=== PATIENT | female | born 1950 | race Caucasian/White ===

== ENCOUNTER 2017-02-03 12:49 | Day surgery (SDC) | payer MEDICARE ==
[~2017-02-03 12:49] MED LIST: BENZ100C PO; CALC-128 PO; CARV25TA2 PO; CHOL2000 PO; ERGO500012 PO; FURO20TA3 PO; HYDROmorphone 2 MG/ML VIAL IV PRN; IV RINGERS,LACTATED 1000ML 1,000 ML IV SCH; LIDOCAINE 1% 1 ML SYRINGE. ID PRN; LISI-334 PO; MAGN400C PO; MORPHINE SULFATE 2 MG/ML DISP.SYRIN. IV PRN; ONDANSETRON PF 4 MG/2 ML VIAL. IV PRN; POTA20TA12 PO; PROCHLORPERAZINE 10 MG/2 ML VIAL. IV PRN; SILV20CR4 TP; TRIA15OI TP; WARF2TAB7 PO; fentaNYL PF VIAL 100 MCG/2 ML VIAL IV PRN
[2017-02-03 14:14] LABS: BASO % 1 % (0-3); EOS % 2 % (0-3); HEMOGLOBIN 15.4 g/dL (12.0-15.5); LYMPH # 1.8 x10^3/uL (1.0-4.8); LYMPH % 25 % (24-48); MEAN CORPUSCULAR HEMOGLOBIN 30 pg (25-35); MEAN CORPUSCULAR HGB CONC 34 g/dL (31-37); MEAN CORPUSCULAR VOLUME 88 fL (79-100); MONO % 7 % (0-9); NEUT % 65 % (31-73); PLATELET COUNT 152 x10^3/uL (140-400); RED BLOOD COUNT 5.23 x10^6/uL (3.50-5.40); RED CELL DISTRIBUTION WIDTH 15.1 % (11.5-14.5); WHITE BLOOD COUNT 7.2 x10^3/uL (4.0-11.0)
[2017-02-03 14:24] LABS: INR 1.6 (0.8-1.1); PROTHROMBIN TIME PATIENT 18.2 SEC (11.7-14.0)
[2017-02-03 14:27] LABS: CALCIUM 10.2 mg/dL (8.5-10.1); CREATININE 1.1 mg/dL (0.6-1.0); GFR 49.7
--- NOTE | 2017-02-03 14:59 | HP ---
ADMIT DATE: 02/03/2017 CHIEF COMPLAINT: Preoperative evaluation for plantar fasciitis. 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 She has now been scheduled for surgery this afternoon. We have been requested to do a preoperative H and P. PAST MEDICAL HISTORY: Atrial fibrillation, chronic anticoagulation, permanent pacemaker, plantar fasciitis, previous plantar fasciitis surgery, and hypertension. ALLERGIES: None. FAMILY HISTORY: Hypertension. SOCIAL HISTORY: She is . She does not drink, smoke, or take drugs. MEDICATIONS: Reviewed. REVIEW OF SYSTEMS: GENERAL: No history of weight change, weakness, or fevers. SKIN: No bruising, hair changes, or rashes. EYES: No blurred, double, or loss of vision. NOSE AND THROAT: No history of nosebleeds, hoarseness, or sore throat. HEART: No history of palpitations, chest pain, or shortness of breath on exertion. LUNGS: Denies cough, hemoptysis, wheezing, or shortness of breath. GASTROINTESTINAL: Denies changes in appetite, nausea, vomiting, diarrhea, or constipation. GENITOURINARY: No history of frequency, urgency, hesitancy, or nocturia. NEUROLOGIC: Denies history of numbness, tingling, tremor, or weakness. PSYCHIATRIC: No history of panic, anxiety, or depression. ENDOCRINE: No history of heat or cold intolerance, polyuria, or polydipsia. EXTREMITIES: She complains of foot pain. PHYSICAL EXAMINATION: VITAL SIGNS: Temperature afebrile, pulse 92, respirations 18, and blood pressure 144/91. GENERAL: She is alert, cooperative. HEART: Normal S1, S2. It is irregular. LUNGS: Clear. ABDOMEN: Soft, decreased bowel sounds. EXTREMITIES: Left foot has plantar fasciitis. There was also a little nodule right below the fourth toe. It is ecchymotic, about 0.5 cm across. LABORATORY DATA: Her INR is 1.5. ASSESSMENT AND PLAN: Plantar fasciitis with a lesion on the plantar surface of the left foot in an elderly female with the above-noted comorbidities. Clinically, she seems very stable for surgery. She expects she will do well. Her INR is low enough. We can go for surgery at 1.5. Postoperatively, she has got wound care, p.r.n. pain medications, resume her home medicines. Thank you very much for allowing us to participate in the care of this nice lady. MARQUIS DE DO DR: BARBARA/tyler JOB#: [id number] / [id number]
[2017-02-03] MEDS ORDERED: PROPOFOL 20 ML IV ONE ×3 (15:10→15:48)
[2017-02-03] MEDS ORDERED: LIDOCAINE 2% PF Vial for OR 5 ML VIAL. ONE (15:10)
[2017-02-03] MEDS ORDERED: LIDOCAINE 1%/EPI 1:100,000 20 ML VIAL. ONE (15:30)
[2017-02-03] MEDS ORDERED: PHENYLEPHRINE in 0.9% NACL PF 1 MG/10 ML DISP.SYRIN. IV ONE (15:40)
--- NOTE | 2017-02-03 16:18 | PDOC4 ---
Operative Note Operative Note Surgeon: Jp Preoperative DX: Benign soft tissue mass left foot/hemangioma or granuloma of skin and subcutaneous tissue left foot postoperative DX: Same Procedure: Excision of soft tissue mass subcutaneous left foot Anesthesia: MAC with local Hemostasis: left ankle tourniquet at 250mmHg x 13 min EBL: 0mL Materials: 3-0 vicryl, 3-0 nylon Intraoperative findings: Note 0.7x0.7cm bulbous red multilobulated soft tissue mass well defined extending to adipose. No sinus tract, no necrosis. no signs of infection SAUMYA SANTOS DPM February 03, 2017 16:18
[2017-02-03] MEDS ORDERED: HYDR-971 PO (16:27)
[2017-02-03 17:00] VITALS: BP 130/69
--- NOTE | 2017-02-03 21:14 | OP ---
DATE OF SURGERY: 02/03/2017 PREOPERATIVE DIAGNOSIS: Granuloma of the skin and soft tissue, left foot. POSTOPERATIVE DIAGNOSIS: Granuloma of the skin and soft tissue, left foot. PROCEDURE: Excision of benign soft tissue mass, subcutaneous and skin of the left foot. SURGEON: Ruddy Trammell DPM. ANESTHESIA: MAC with local. HEMOSTASIS: Left ankle tourniquet at 250 mmHg. INDICATIONS: The patient is a 66-year-old female who complains of continued painful recurrent mass to the plantar left foot. She had undergone previous treatment with wound care and cauterization with silver nitrate and continued to have recurrence. The patient then underwent, in my office, a surgical curettement to the basement membrane which appeared to have alleviated temporarily, but then the lesion grew back to cause her pain in ambulation and gait; thus, decision was made to have an excisional biopsy of the mass of the left foot. Discussed with the patient possible risks, benefits, and complications, to include delayed healing, nonhealing, infection and recurrence, need for further surgery, numbness, tingling, burning, recurrence of the mass, DVT, pulmonary embolism, loss of foot, limb, or life. The patient signed consent freely and was placed in the chart. DESCRIPTION OF PROCEDURE: The patient was transported to the operating room via a cart and placed on the operating room table in supine position. Final verification of the surgery, the patient, and limb was performed. IV sedation was administered per anesthesia and 7 mL of 1% lidocaine with epinephrine was then injection in a V-field block to the area of the mass. Then the well-padded tourniquet was placed over the left ankle and the left foot was then prepped and draped in the usual aseptic manner. Attention was directed to the left foot where a 1.5 two converging semielliptical incisions were made to excise the soft tissue mass of the plantar left forefoot. This was deepened to the subcutaneous tissue and note there was a bulbous, red, multilobulated soft tissue mass, which was well-defined and did extend into the adipose. There was no noted sinus tracking. There was no necrosis, no signs of infection, no obvious foreign body; however, sometimes this can be noted with a foreign body reaction. The specimen was then sent to pathology and will await further definitive diagnosis. The wound was then copiously irrigated with sterile saline and the skin was reapproximated with 3-0 Vicryl and 3-0 nylon. The wound was then dressed with Betadine ointment, Adaptic gauze, 4 x 4s, Kerlix and a Coban. The patient is to keep the dressing clean, dry and intact and we will see her back in the office next week. The patient will be given Agness 325/5 postoperatively and the patient to call if any problems. Postoperative instructions are in the chart. URDDY TRAMMELL DPM DR: Viji JOB#: [id number] / [id number]
--- NOTE | 2017-02-09 11:05 | PATHOLOGY ---
PATHOLOGY REPORT * * * * * * * * FINAL DIAGNOSIS: Skin and subcutaneous tissue, left foot lesion: - Lobulated capillary hemangioma. COMMENT: The lesion focally extends to the inked side margins. There is no evidence of malignancy. (JPM:csd; d/t: 02/08/2017) REPORT ELECTRONICALLY SIGNED BY: Meliton Rivas M.D. DATE/TIME: 02/08/2017 13:28 * * * * * * * * GROSS PATHOLOGY: Received in formalin labeled "Taya Mcgill, lesion left foot," is a 1.9 x 0.9 x 0.5 cm ellipse of skin displaying a well-circumscribed, irregular in contour and pale pink lesion which measures 0.6 x 0.5 cm. The margins are inked black. The specimen is sectioned into eight pieces and entirely submitted in cassettes A1 and A2, with the bisected tips placed in cassette A2. (CAA; 02/05/2017) INITIAL CPT CODE(S): A; 84652 Professional services performed [place] [facility] [place] [address] Technical services performed by [facility] at [address] [place] [address] [address], [place] [address]. SPECIMEN(S) RECEIVED: A.Lesion left foot CLINICAL HISTORY: Lesion left foot, benign soft tissue mass PATIENT: TAYA MCGILL /AGE: 804/30/1950 (Age: 66) PATIENT #: [id number] ALT CASE #: SPECIMEN COLLECTION DATE: 02/03/2017 SPECIMEN RECEIVED DATE: 02/04/2017 [facility] - [address] [place] [address] - PHONE: [phone] * * * END OF REPORT * * *
== END 2017-02-03 17:10 | disposition home or self-care (01) ==
LOC: SURG 12:49
PROVIDERS: ATTEND Podiatrist Foot & Ankle Surgery
DX: M79.89 Other specified soft tissue disorders (principal); I48.91 Unspecified atrial fibrillation; I10 Essential (primary) hypertension; E66.9 Obesity, unspecified; M19.90 Unspecified osteoarthritis, unspecified site; Z90.49 Acquired absence of other specified parts of digestive tract; Z87.891 Personal history of nicotine dependence
CPT/HCPCS: 28043; 36415; 80048; 85027; 85610; 85730; 88305; C1769; J2370; J2704; J3490